=== PATIENT | female | born 1995 | race Caucasian/White ===

== ENCOUNTER 2021-08-30 17:37 | Emergency (ER) | payer OTHER ==
[2021-08-30 17:50] VITALS: BP 122/78; PULSE 84; TEMP 98.3
[2021-08-30] MEDS ORDERED: KETOROLAC TROMETHAMINE 30 MG/1 ML VIAL IVPB ONE (20:02)
[2021-08-30] MEDS ORDERED: KETOROLAC TROMETHAMINE 30 MG/1 ML VIAL ONE (20:07)
[2021-08-30 20:53] LABS: BASO % 0.4 % (0-2.0); EOS % 2.7 % (0-4.5); HEMATOCRIT 38.7 % (32.4-45.2); HEMOGLOBIN 13.3 GM/dL (10.7-15.3); MCH 30.6 pg (25.7-33.7); MCHC 34.4 g/dl (32.0-36.0); MEAN CELL VOLUME 88.7 fl (80-96); MEAN PLT VOLUME 7.5 fl (7.5-11.1); MONO % 14.4 % (3.8-10.2); NEUT % 55.5 % (42.8-82.8); PLATELET COUNT 254 10^3/uL (134-434); RBC 4.36 M/mm3 (3.60-5.2); RDW 12.2 % (11.6-15.6)
[2021-08-30 21:12] LABS: ALBUMIN 3.3 g/dl (3.4-5.0); BLOOD UREA NITROGEN 11.3 mg/dL (7-18); CALCIUM 8.9 mg/dL (8.5-10.1)
[2021-08-30 21:15] LABS: CREATININE 0.7 mg/dL (0.55-1.3)
[2021-08-30 21:17] LABS: BILIRUBIN,TOTAL 0.1 mg/dL (0.2-1)
== END 2021-08-30 23:32 | disposition home or self-care (01) ==
LOC: JERFT 17:37 → JER 17:37 → JERFT 23:32
PROC: 3E033GC Introduction of Other Therapeutic Substance into Peripheral Vein, Percutaneous Approach (ICD-10-PCS; principal; 2021-08-30)
DX: R07.1 Chest pain on breathing (principal)
CPT/HCPCS: 36415; 71046-TC-FY; 71275-TC; 80053; 84703; 85025; 85379; 93005; 93010; 96374; 99285-25; Q9967

== ENCOUNTER 2021-10-29 06:24 | Emergency (ER) | payer OTHER ==
[2021-10-29 06:48] VITALS: BP 113/66; PULSE 79; RESP 20; BMI 28.3
== END 2021-10-29 10:04 | disposition home or self-care (01) ==
LOC: JER 06:24
DX: M79.671 Pain in right foot (principal); M79.672 Pain in left foot
CPT/HCPCS: 73630-TC-LT; 73630-TC-RT-FY; 82962; 99284-25

== ENCOUNTER 2023-02-08 12:14 | Emergency (ER) | payer OTHER ==
[2023-02-08 12:37] VITALS: RESP 18; TEMP 98.9; BMI 29.2
[2023-02-08 14:32] LABS: INR 0.9 (0.83-1.09); PROTHROMBIN TIME (PATIENT) 10.4 SEC (9.7-13.0)
[2023-02-08 14:33] LABS: ACTIVATED PTT 18.1 SECONDS (25.2-36.5)
[2023-02-08 14:44] LABS: ALBUMIN 3.3 g/dl (3.4-5.0); BLOOD UREA NITROGEN 11.8 mg/dL (7-18); CALCIUM 9.1 mg/dL (8.5-10.1)
[2023-02-08 14:48] LABS: BILIRUBIN,TOTAL 0.2 mg/dL (0.2-1); TOT PROT 9.8 g/dl (6.4-8.2)
[2023-02-08 14:54] LABS: CREATININE 0.6 mg/dL (0.55-1.3)
[2023-02-08 15:08] LABS: BASO % 0.5 % (0-2.0); EOS % 1.5 % (0-4.5); HEMATOCRIT 39.3 % (32.4-45.2); HEMOGLOBIN 13.3 GM/dL (10.7-15.3); LYMPH % 16.3 % (8-40); MCH 29.9 pg (25.7-33.7); MCHC 33.8 g/dl (32.0-36.0); MEAN CELL VOLUME 88.5 fl (80-96); MEAN PLT VOLUME 7.4 fl (7.5-11.1); MONO % 12.2 % (3.8-10.2); NEUT % 69.5 % (42.8-82.8); PLATELET COUNT 242 10^3/uL (134-434); RBC 4.44 M/mm3 (3.60-5.2); RDW 12.8 % (11.6-15.6); WHITE BLOOD COUNT 7.1 K/mm3 (4.0-10.0)
[2023-02-08 15:31] LABS: POTASSIUM 4.7 mmol/L (3.5-5.1)
[2023-02-08 15:33] LABS: CALCIUM 9.1 mg/dL (8.5-10.1)
[2023-02-08 15:34] LABS: ALBUMIN 3.2 g/dl (3.4-5.0); BLOOD UREA NITROGEN 11.2 mg/dL (7-18)
[2023-02-08 15:37] LABS: CREATININE 0.6 mg/dL (0.55-1.3)
[2023-02-08 15:38] LABS: TOT PROT 8.9 g/dl (6.4-8.2)
[2023-02-08 15:39] LABS: BILIRUBIN,TOTAL 0.2 mg/dL (0.2-1)
[2023-02-08 18:18] LABS: ERYTHROCYTE SEDIMENTATION RATE 71 mm/hr (0-20)
[2023-02-08 18:57] LABS: PH,URINE 7.5 (5.0-8.0); URINE APPEARANCE TURBID; URINE BILIRUBIN NEGATIVE (NEGATIVE); URINE COLOR YELLOW; URINE GLUCOSE (UA) NEGATIVE (NEGATIVE); URINE KETONE NEGATIVE (NEGATIVE); URINE LEUK ESTERASE NEGATIVE (NEGATIVE); URINE NITRITE NEGATIVE (NEGATIVE); URINE PROTEIN NEGATIVE (NEGATIVE); URINE UROBILINOGEN 0.2 mg/dL (0.2-1.0)
[2023-02-08 19:00] VITALS: BP 107/69; PULSE 98
== END 2023-02-08 19:45 | disposition home or self-care (01) ==
LOC: JER 12:14
DX: R53.1 Weakness (principal); M79.645 Pain in left finger(s); M79.644 Pain in right finger(s); R22.33 Localized swelling, mass and lump, upper limb, bilateral
CPT/HCPCS: 0241U-QW; 36415; 73130-TC-LT-FY; 73130-TC-RT-FY; 80053; 81003; 83735; 85025; 85610; 85651; 85730; 86140; 86850; 86870; 86880; 86900; 86901; 86902; 87086; 93930; 93970-TC; 99285-25